=== PATIENT | male | born 1940 | race Caucasian/White ===

== ENCOUNTER → 2016-08-04 | Outpatient (CLI) | payer MEDICARE, MEDICAID ==
[~2016-08-04] MED LIST: AMIT25TA9 PO; AMLO2.5T45 PO; ASPI-1035 PO; CLON0.1T PO; DONE5TAB33 PO; FENO145T19 PO; FERR-63 PO; GABA-290 PO; INSU3INS6 SUBCUT; LEVO75TA7 PO; MECL-109 PO; OMEP40CA34 PO; ONDA4TAB5 PO; OXYC30TA89 PO; SIMV20TA6 PO
== END | disposition home or self-care (01) ==
LOC: MRI 09:30
PROVIDERS: ATTEND Neurological Surgery
DX: M54.9 Dorsalgia, unspecified (principal); M48.06 Spinal stenosis, lumbar region
CPT/HCPCS: 72148

== ENCOUNTER → 2016-10-13 | Outpatient (CLI) | payer MEDICARE, MEDICAID | END | disposition home or self-care (01) | LOC: CARD 08:16 | PROVIDERS: ATTEND Psychiatry & Neurology Neurology | DX: F03.90 Unspecified dementia, unspecified severity, without behavioral disturbance, psychotic disturbance, mood disturbance, and anxiety (principal); R41.3 Other amnesia ==

== ENCOUNTER 2020-08-28 10:00 | Inpatient (IN) | payer MEDICARE, MEDICAID ==
[~2020-08-28] VITALS: Ht 154.9 cm; Wt 66.8 kg
[~2020-08-28 10:00] MED LIST changes: -ASPI-1035 PO; +ASPI-1497 PO; -FENO145T19 PO; +FENO145T25 PO; +HEPARIN SODIUM 1,000 UNIT/1ML VIAL IV ONE; +HYDR25TA PO; +LOSA25TA26 PO; -MECL-109 PO; +MECL-159 PO; +NICARDIPINE 100MCG/ML 10ML VIAL (CATH LAB) IV ONE; +NITROGLYCERIN 50MCG/ML 10ML VIAL (CATH LAB) IV ONE; +OMEP40CA12 PO; -OMEP40CA34 PO; +OXYC-582 PO; -OXYC30TA89 PO; +SIMV-43 PO; -SIMV20TA6 PO
[2020-08-28] MEDS ORDERED: ASPIRIN 325MG EC TABLET PO ONE (10:30)
[2020-08-28 10:35] LABS: BASOPHILS % 0.4 % (0.0-2.0); EOSINOPHILS % 1.3 % (0.0-5.0); HEMATOCRIT. 41.6 % (42.0-52.0); HEMOGLOBIN. 14.1 g/dL (14.0-18.0); MEAN CORPUSCULAR HEMOGLOBIN 31.7 pg (28.0-32.0); MEAN CORPUSCULAR VOLUME 93.5 fL (80.0-94.0); MEAN PLATELET VOLUME 8.9 fl (7.4-10.4); MONOCYTES % 6.5 % (2.0-8.0); NEUTROPHILS % 67.8 % (40.0-76.0); PLATELET 189 x1000/uL (130-400); RED BLOOD CELL COUNT 4.45 mill/uL (4.7-6.1); RED CELL DISTRIBUTION WIDTH 13.2 % (11.6-14.6)
[2020-08-28 10:44] LABS: CHLORIDE 113 mEq/L (98-107)
[2020-08-28 11:08] LABS: PARTIAL THROMBOPLASTIN TIME 24.1 sec (23.4-31.0); PROTHROMBIN TIME 10.5 sec (9.6-11.0)
[2020-08-28] MEDS ORDERED: ISOSORBIDE MONONITRATE 60MG TABLET SR 24HR PO NR (12:30)
[2020-08-28] MEDS ORDERED: IODIXANOL 320MG/ML 200ML BOTTLE ONE (12:48)
[2020-08-28] MEDS ORDERED: LIDOCAINE HCL 1% 20ML VIAL (Pyxis) INJ ONE (12:48)
[2020-08-28] MEDS ORDERED: IOHEXOL-300 100 ML BOTTLE ONE (12:48)
[2020-08-28] MEDS ORDERED: FENTANYL CITRATE/PF 50MCG/ML 2ML VIAL ONE (13:26)
[2020-08-28] MEDS ORDERED: MIDAZOLAM HCL 2 MG/2 ML VIAL ONE (13:26)
[2020-08-28] MEDS ORDERED: CLOPIDOGREL 75MG TABLET ONE (14:04)
[2020-08-28] MEDS ORDERED: ACETAMINOPHEN 325MG TABLET PO PRN ×2 (14:15→15:00)
[2020-08-28] MEDS ORDERED: ATROPINE SULFATE 1MG/10ML SYR IV PRN (14:15)
[2020-08-28 15:00] VITALS: BP 194/64
[2020-08-28] MEDS ORDERED: NA PHOS,M-B/NA PHOS,DI-BA ENEMA 118ML PR PRN (15:00)
[2020-08-28] MEDS ORDERED: HYDRALAZINE 20MG/ML VIAL IV PRN (15:00)
[2020-08-28] MEDS ORDERED: DIPHENHYDRAMINE 50MG/ML VIAL IV PRN (15:00)
[2020-08-28] MEDS ORDERED: HYDROCODONE/ACETAMINOPHEN 5/325MG TABLET PO PRN (15:00)
[2020-08-28] MEDS ORDERED: IPRATROPIUM/ALBUTEROL 0.5-3(2.5)MG/3ML NEB NEB PRN (15:00)
[2020-08-28] MEDS ORDERED: ONDANSETRON HCL 4MG/2ML INJ IV PRN (15:00)
[2020-08-28] MEDS ORDERED: MAGNESIUM/ALUMINUM HYDROXIDE/SIMETHICONE 30ML UDC PO PRN (15:00)
[2020-08-28] MEDS ORDERED: AMLODIPINE 5MG TABLET PO SCH (15:00)
[2020-08-28] MEDS ORDERED: DEXTROSE 50% WATER 50ML SYRINGE IV PRN (15:00)
[2020-08-28] MEDS ORDERED: LORAZEPAM 0.5MG TABLET PO PRN (15:00)
[2020-08-28] MEDS ORDERED: ACETAMINOPHEN 650MG SUPP PR PRN ×2 (15:00)
[2020-08-28] MEDS ORDERED: GUAIFENESIN 200MG/10ML SUGAR FREE UDC PO PRN (15:00)
[2020-08-28] MEDS ORDERED: DOCUSATE SODIUM 100MG CAPSULE PO PRN (15:00)
[2020-08-28 15:33] VITALS: BP 160/72
[2020-08-28] MEDS: LOSARTAN POTASSIUM 50 MG TABLET PO SCH (15:56)
[2020-08-28] MEDS: AMLODIPINE 5MG TABLET PO SCH (15:56)
[2020-08-28 16:00] VITALS: BP 160/73
[2020-08-28] MEDS: BLOOD SUGAR DIAGNOSTIC STRIP TEST SCH ×2 (16:29→21:21)
[2020-08-28] MEDS: INSULIN LISPRO 100 UNITS/ML SUBCUT SCH ×2 (16:29→21:00)
[2020-08-28 17:30] VITALS: BP 146/68
[2020-08-28 20:10] VITALS: BP 139/65
[2020-08-28] MEDS ORDERED: ATORVASTATIN CALCIUM 40MG TABLET PO SCH ×2 (21:00)
[2020-08-28] MEDS: METOPROLOL TARTRATE 25MG TABLET PO SCH (21:00)
[2020-08-28] MEDS ORDERED: METOPROLOL TARTRATE 50MG TABLET PO SCH (21:00)
[2020-08-28] MEDS ORDERED: FAMOTIDINE 20MG TABLET PO SCH (21:00)
[2020-08-28] MEDS: HYDRALAZINE 20MG/ML VIAL IV PRN (21:21)
[2020-08-28 22:10] VITALS: BP 136/58
[2020-08-28 22:35] LABS: CREATINE KINASE MB FRACTION 3.7 ng/mL (0.5-3.6)
[2020-08-29] VITALS (7 sets, daily range): BP systolic 115–144; BP diastolic 53–65
[2020-08-29] MEDS: HYDRALAZINE 20MG/ML VIAL IV PRN (03:55)
[2020-08-29] MEDS: BLOOD SUGAR DIAGNOSTIC STRIP TEST SCH (05:51)
[2020-08-29 07:04] LABS: BASOPHILS % 0.6 % (0.0-2.0); EOSINOPHILS % 0.8 % (0.0-5.0); HEMATOCRIT. 42.9 % (42.0-52.0); HEMOGLOBIN. 14.7 g/dL (14.0-18.0); LYMPHOCYTES % 17.6 % (20.0-50.0); MEAN CORPUSCULAR HEMOGLOBIN 32.1 pg (28.0-32.0); MEAN CORPUSCULAR VOLUME 93.8 fL (80.0-94.0); MEAN PLATELET VOLUME 9.3 fl (7.4-10.4); MONOCYTES % 6.9 % (2.0-8.0); NEUTROPHILS % 74.1 % (40.0-76.0); PLATELET 170 x1000/uL (130-400); RED BLOOD CELL COUNT 4.57 mill/uL (4.7-6.1); RED CELL DISTRIBUTION WIDTH 13.5 % (11.6-14.6)
[2020-08-29 07:06] LABS: CHLORIDE 110 mEq/L (98-107)
[2020-08-29 07:19] LABS: CREATINE KINASE 92 IU/L (39-308); T4 FREE 0.84 ng/dL (0.76-1.46)
[2020-08-29 07:20] LABS: CREATINE KINASE MB FRACTION 5.9 ng/mL (0.5-3.6)
[2020-08-29] MEDS: INSULIN LISPRO 100 UNITS/ML SUBCUT SCH (07:20)
[2020-08-29 07:21] LABS: LDL CHOLESTEROL 216 mg/dL (5-100)
[2020-08-29 07:22] LABS: HDL CHOLESTEROL 45 mg/dL (40-59)
[2020-08-29] MEDS: AMLODIPINE 5MG TABLET PO SCH (08:33)
[2020-08-29] MEDS: METOPROLOL TARTRATE 25MG TABLET PO SCH (08:33)
[2020-08-29] MEDS ORDERED: CLOPIDOGREL 75MG TABLET PO SCH (09:00)
[2020-08-29] MEDS ORDERED: ASPIRIN 325MG EC TABLET PO SCH (09:00)
[2020-08-29] MEDS ORDERED: CLOP-31 MT ×2 (11:49→11:50)
[2020-08-29] MEDS: LOSARTAN POTASSIUM 50 MG TABLET PO SCH (12:19)
== END 2020-08-29 12:28 | disposition home or self-care (01) | DRG 247 ==
LOC: ER 10:00 → ORIP 11:25 → 3WST 15:45
PROVIDERS: ADMIT Internal Medicine; ATTEND Internal Medicine
PROC: 027034Z Dilation of Coronary Artery, One Artery with Drug-eluting Intraluminal Device, Percutaneous Approach (ICD-10-PCS; principal; 2020-08-28)
PROC: 4A023N7 Measurement of Cardiac Sampling and Pressure, Left Heart, Percutaneous Approach (ICD-10-PCS; 2020-08-28)
PROC: B2111ZZ Fluoroscopy of Multiple Coronary Arteries using Low Osmolar Contrast (ICD-10-PCS; 2020-08-28)
PROC: B2151ZZ Fluoroscopy of Left Heart using Low Osmolar Contrast (ICD-10-PCS; 2020-08-28)
DX: I25.110 Atherosclerotic heart disease of native coronary artery with unstable angina pectoris (principal); E03.9 Hypothyroidism, unspecified; E11.9 Type 2 diabetes mellitus without complications; E78.00 Pure hypercholesterolemia, unspecified; D71 Functional disorders of polymorphonuclear neutrophils; E78.5 Hyperlipidemia, unspecified; I10 Essential (primary) hypertension; K21.9 Gastro-esophageal reflux disease without esophagitis; Z20.822 Contact with and (suspected) exposure to COVID-19; Z90.49 Acquired absence of other specified parts of digestive tract; Z98.61 Coronary angioplasty status; Z88.0 Allergy status to penicillin; Z79.899 Other long term (current) drug therapy; Z79.82 Long term (current) use of aspirin; I77.9 Disorder of arteries and arterioles, unspecified; R00.1 Bradycardia, unspecified
CPT/HCPCS: 36415; 71045; 80053; 80061; 82550; 82553; 82962; 83036; 83735; 83880; 84439; 84443; 84484; 85025; 85347; 86850; 86900; 87426; 92928; 93005; 93306; 93458; 99285; C1726; C1769; C1874; C1887; C1893; J0360; J1644; J2250; J3010; J3490; Q9967

== ENCOUNTER 2024-03-04 10:31 | Inpatient (IN) | payer MEDICARE, MEDICAID ==
[~2024-03-04] VITALS: Ht 165.1 cm; Wt 52.2 kg
[~2024-03-04 10:31] MED LIST changes: +CLOP-31 MT; -HEPARIN SODIUM 1,000 UNIT/1ML VIAL IV ONE; -MECL-159 PO; +MECL-299 PO; -NICARDIPINE 100MCG/ML 10ML VIAL (CATH LAB) IV ONE; -NITROGLYCERIN 50MCG/ML 10ML VIAL (CATH LAB) IV ONE; -OMEP40CA12 PO; +OMEP40CA20 PO
[2024-03-04 10:33] VITALS: O2SAT 95
[2024-03-04 11:37] LABS: BASOPHILS % 0.3 % (0.0-2.0); EOSINOPHILS % 0.1 % (0.0-5.0); HEMATOCRIT. 35.7 % (42.0-52.0); HEMOGLOBIN. 11.6 g/dL (14.0-18.0); LYMPHOCYTES % 13.6 % (20.0-50.0); MEAN CORPUSCULAR HGB CONC 32.4 g/dL (31.0-37.0); MEAN CORPUSCULAR VOLUME 89.3 fL (80.0-94.0); MEAN PLATELET VOLUME 7.7 fl (7.4-10.4); MONOCYTES % 6.4 % (2.0-8.0); NEUTROPHILS % 79.6 % (40.0-76.0); PLATELET 204 x1000/uL (130-400); RED CELL DISTRIBUTION WIDTH 14.6 % (11.6-14.6); WHITE BLOOD COUNT 10.7 x1000/uL (4.5-11.0)
[2024-03-04 11:42] LABS: CHLORIDE 105 mEq/L (98-107); SODIUM 135 mEq/L (136-145)
[2024-03-04 11:43] LABS: CALCIUM 8.9 mg/dL (8.7-10.4); CARBON DIOXIDE 24 mEq/L (21-32)
[2024-03-04 11:48] LABS: CREATININE 1.2 mg/dL (0.6-1.3)
[2024-03-04 11:49] LABS: TROPONIN I HIGH SENSITIVITY 11 ng/L (3.0-53); UREA NITROGEN BLOOD 18 mg/dL (9-23)
[2024-03-04 11:50] LABS: ALANINE AMINOTRANSFERASE 49 IU/L (10-49); ALBUMIN 3.8 g/dL (3.2-4.8); ASPARTATE AMINOTRANSFERASE 80 IU/L (<34)
[2024-03-04 11:51] LABS: BILIRUBIN DIRECT 0.2 mg/dL (<=3.0); BILIRUBIN TOTAL 0.5 mg/dL (0.1-1.0)
[2024-03-04 12:28] LABS: PROTHROMBIN TIME 11.6 sec (9.6-11.0)
[2024-03-04 12:40] LABS: GLUCOSE 39 mg/dL (70-105)
[2024-03-04] MEDS: ASPIRIN 81MG TABLET PO ONE (13:10)
[2024-03-04] MEDS: SODIUM CHLORIDE 0.9% 500 ML IV ONE (13:15)
[2024-03-04] MEDS: DEXTROSE 50% WATER 50ML SYRINGE IV ONE (13:15)
[2024-03-04 13:29] LABS: TROPONIN I HIGH SENSITIVITY 11 ng/L (3.0-53)
[2024-03-04] MEDS: AMLODIPINE 2.5MG TABLET PO SCH (14:15)
[2024-03-04] MEDS ORDERED: CLONIDINE 0.1MG TABLET PO PRN (14:15)
[2024-03-04] MEDS: ASPIRIN 325MG EC TABLET PO SCH (14:23)
[2024-03-04] MEDS: DEXT 10% WATER 1,000 ML IV ONE (14:28)
[2024-03-04 18:22] VITALS: BP 132/51; PULSE 73; RESP 20; TEMP 36.55848; O2SAT 96
[2024-03-04 20:00] VITALS: BP 137/49; PULSE 74; RESP 17; TEMP 36.50292; O2SAT 88
[2024-03-04] MEDS ORDERED: ACETAMINOPHEN 325MG TABLET PO PRN ×2 (22:00)
[2024-03-04] MEDS ORDERED: DEXTROSE 50% WATER 50ML SYRINGE IV PRN (22:00)
[2024-03-04] MEDS ORDERED: ZOLPIDEM TARTRATE 5MG TABLET PO PRN (22:00)
[2024-03-04] MEDS ORDERED: ONDANSETRON HCL 4MG/2ML INJ IV PRN (22:00)
[2024-03-04] MEDS ORDERED: DIPHENHYDRAMINE 50MG/ML VIAL IV PRN (22:00)
[2024-03-04] MEDS: GABAPENTIN 300MG CAPSULE PO SCH (23:06)
[2024-03-04] MEDS: SODIUM CHLORIDE 0.9% 3ML FLUSH IVF SCH (23:06)
[2024-03-05] VITALS (7 sets, daily range): BP systolic 100–150; BP diastolic 51–63; PULSE 71–76; RESP 16–20; TEMP 35.89176–36.6696; O2SAT 93–98
[2024-03-05] MEDS: LEVOTHYROXINE SODIUM 75MCG TABLET PO SCH (06:25)
[2024-03-05] MEDS: BLOOD SUGAR DIAGNOSTIC STRIP TEST SCH (06:25)
[2024-03-05] MEDS: PANTOPRAZOLE 40MG DR TABLET PO SCH (06:25)
[2024-03-05] MEDS: INSULIN LISPRO 100 UNITS/ML SUBCUT SCH (06:40)
[2024-03-05 07:26] LABS: CHLORIDE 107 mEq/L (98-107); POTASSIUM 4.2 mEq/L (3.5-5.1); SODIUM 139 mEq/L (136-145)
[2024-03-05 07:29] LABS: CARBON DIOXIDE 23 mEq/L (21-32)
[2024-03-05 07:29] LABS: BASOPHILS % 0.5 % (0.0-2.0); EOSINOPHILS % 0.8 % (0.0-5.0); HEMATOCRIT. 34.6 % (42.0-52.0); HEMOGLOBIN. 11.7 g/dL (14.0-18.0); LYMPHOCYTES % 17.5 % (20.0-50.0); MEAN CORPUSCULAR HGB CONC 33.9 g/dL (31.0-37.0); MEAN CORPUSCULAR VOLUME 88.3 fL (80.0-94.0); MEAN PLATELET VOLUME 8.4 fl (7.4-10.4); MONOCYTES % 8.1 % (2.0-8.0); NEUTROPHILS % 73.1 % (40.0-76.0); PLATELET 225 x1000/uL (130-400); RED BLOOD CELL COUNT 3.92 mill/uL (4.7-6.1); RED CELL DISTRIBUTION WIDTH 14.5 % (11.6-14.6); WHITE BLOOD COUNT 8.3 x1000/uL (4.5-11.0)
[2024-03-05 07:32] LABS: TROPONIN I HIGH SENSITIVITY 13 ng/L (3.0-53)
[2024-03-05 07:34] LABS: GLUCOSE 137 mg/dL (70-105); UREA NITROGEN BLOOD 13 mg/dL (9-23)
[2024-03-05 07:36] LABS: ALBUMIN 3.5 g/dL (3.2-4.8); ASPARTATE AMINOTRANSFERASE 65 IU/L (<34); BILIRUBIN TOTAL 0.3 mg/dL (0.1-1.0); PROTEIN TOTAL 6.5 g/dL (6.0-8.3); THYROID STIMULATING HORMONE 2.03 uIU/mL (0.55-4.78)
[2024-03-05 07:38] LABS: ALANINE AMINOTRANSFERASE 49 IU/L (10-49)
[2024-03-05 08:58] LABS: HEPATITIS B SURFACE ANTIGEN NEGATIVE (Negative)
[2024-03-05 09:19] LABS: HEPATITIS C AB NON REACTIVE (Neg) (Negative)
[2024-03-05] MEDS: TIMOLOL MALEATE 0.25% OPHTH DROPS 5ML EACHEYE SCH (10:45)
[2024-03-05] MEDS: DOCUSATE SODIUM 100MG CAPSULE PO SCH (10:46)
[2024-03-05] MEDS: ASPIRIN 81MG EC TABLET PO SCH (10:48)
[2024-03-05] MEDS: MAGNESIUM 4 G PREMIX 100 ML IV NR (18:49)
[2024-03-05] MEDS: BRIMONIDINE 0.2% OPHTH DROPS 5ML BOTHEYE SCH (20:26)
[2024-03-05] MEDS: ATORVASTATIN CALCIUM 40MG TABLET PO SCH (20:26)
[2024-03-05] MEDS: AMITRIPTYLINE 25MG TABLET PO SCH (20:27)
[2024-03-06 00:05] VITALS: BP 151/64; PULSE 74; RESP 16; TEMP 35.89176; O2SAT 95
[2024-03-06 04:05] VITALS: BP 152/64; PULSE 73; RESP 17; TEMP 36.50292; O2SAT 96
[2024-03-06 08:00] VITALS: BP 148/66; PULSE 89; RESP 18; TEMP 36.6696; O2SAT 98
[2024-03-06 12:00] VITALS: BP 157/55; PULSE 75; RESP 20; TEMP 36.33624
[2024-03-06 13:47] LABS: BASOPHILS % 0.3 % (0.0-2.0); EOSINOPHILS % 0.8 % (0.0-5.0); HEMATOCRIT. 40.4 % (42.0-52.0); HEMOGLOBIN. 13.1 g/dL (14.0-18.0); LYMPHOCYTES % 15.6 % (20.0-50.0); MEAN CORPUSCULAR HEMOGLOBIN 28.9 pg (28.0-32.0); MEAN CORPUSCULAR HGB CONC 32.3 g/dL (31.0-37.0); MEAN CORPUSCULAR VOLUME 89.4 fL (80.0-94.0); MEAN PLATELET VOLUME 8.2 fl (7.4-10.4); MONOCYTES % 6.6 % (2.0-8.0); NEUTROPHILS % 76.7 % (40.0-76.0); PLATELET 242 x1000/uL (130-400); RED BLOOD CELL COUNT 4.52 mill/uL (4.7-6.1); RED CELL DISTRIBUTION WIDTH 14.5 % (11.6-14.6); WHITE BLOOD COUNT 10.4 x1000/uL (4.5-11.0)
[2024-03-06 13:54] LABS: CHLORIDE 106 mEq/L (98-107); POTASSIUM 4.7 mEq/L (3.5-5.1); SODIUM 139 mEq/L (136-145)
[2024-03-06 13:55] LABS: CALCIUM 9.5 mg/dL (8.7-10.4); CARBON DIOXIDE 26 mEq/L (21-32)
[2024-03-06 14:00] LABS: CREATININE 0.9 mg/dL (0.6-1.3); GLUCOSE 145 mg/dL (70-105); UREA NITROGEN BLOOD 13 mg/dL (9-23)
[2024-03-06 14:01] LABS: TROPONIN I HIGH SENSITIVITY 7 ng/L (3.0-53)
[2024-03-06] MEDS: INFLUENZA VACCINE 05/PF 0.5 ML SYRINGE IM ONE (15:00)
== END 2024-03-06 17:25 | disposition home health service (06) | DRG 637 ==
LOC: ER 11:10 → EDBEDREQ 11:22 → EDBEDREQTM 12:21 → EDBEDREQ 12:21 → EDBEDREQTM 13:29 → 8WST 17:39
PROVIDERS: ADMIT Internal Medicine; ATTEND Internal Medicine
DX: E11.649 Type 2 diabetes mellitus with hypoglycemia without coma (principal); G93.41 Metabolic encephalopathy; I25.10 Atherosclerotic heart disease of native coronary artery without angina pectoris; I10 Essential (primary) hypertension; K21.9 Gastro-esophageal reflux disease without esophagitis; E78.00 Pure hypercholesterolemia, unspecified; E03.9 Hypothyroidism, unspecified; E83.42 Hypomagnesemia; Z95.5 Presence of coronary angioplasty implant and graft; Z82.49 Family history of ischemic heart disease and other diseases of the circulatory system; Z86.14 Personal history of Methicillin resistant Staphylococcus aureus infection; Z88.0 Allergy status to penicillin; Z90.49 Acquired absence of other specified parts of digestive tract
CPT/HCPCS: 36415; 71045; 80048; 80053; 80076; 82962; 83036; 83735; 83880; 84443; 84484; 85025; 85379; 86705; 87340; 90686; 93005; 93306; 93970; 99291; J1815; J3475; J7040

== ENCOUNTER 2025-03-16 07:27 | Emergency (ER) | payer MEDICARE, MEDICAID ==
[~2025-03-16] VITALS: Ht 154.9 cm; Wt 60.0 kg
[~2025-03-16 07:27] MED LIST changes: +AMIT25TA21 PO; -AMIT25TA9 PO; -DONE5TAB33 PO; -INSU3INS6 SUBCUT
[2025-03-16 07:43] VITALS: TEMP 36.7; O2SAT 100
[2025-03-16] MEDS ORDERED: HYDR25SU37 RC (08:34)
[2025-03-16 08:53] LABS: CLARITY URINE CLEAR (CLEAR); COLOR URINE YELLOW (YELLOW); PH URINE 5.5 (4.5-8.0); SPECIFIC GRAVITY URINE 1.015 (1.005-1.030)
[2025-03-16 08:54] LABS: GLUCOSE URINE 3+ (NEGATIVE); PROTEIN URINE 1+ (NEGATIVE)
[2025-03-16 08:56] LABS: KETONES URINE NEGATIVE (NEGATIVE); LEUKOCYTE ESTERASE URINE NEGATIVE (NEGATIVE); NITRITE URINE NEGATIVE (NEGATIVE); OCCULT BLOOD URINE NEGATIVE (NEGATIVE); UROBILINOGEN URINE 0.2 E.U./dL (0.2-1.0)
[2025-03-16 09:44] LABS: WBC URINE 0-2 /hpf (0-2)
[2025-03-16 09:46] LABS: BACTERIA URINE NONE SEEN; RBC URINE NONE SEEN /hpf (0-2); SQUAMOUS EPITHELIAL CELL URINE NONE SEEN /lpf (RARE/1+)
[2025-03-16 09:50] VITALS: BP 154/70; PULSE 58; RESP 16; O2SAT 97
== END 2025-03-16 09:58 | disposition home or self-care (01) ==
LOC: ER 08:12
DX: K64.9 Unspecified hemorrhoids (principal); R30.0 Dysuria; R81 Glycosuria; E11.9 Type 2 diabetes mellitus without complications; I10 Essential (primary) hypertension; E78.00 Pure hypercholesterolemia, unspecified; H40.9 Unspecified glaucoma; Z79.82 Long term (current) use of aspirin; Z88.0 Allergy status to penicillin; Z90.49 Acquired absence of other specified parts of digestive tract; Z79.899 Other long term (current) drug therapy
CPT/HCPCS: 81003; 99283